=== PATIENT | male | born 1940 | race Caucasian/White ===

== ENCOUNTER → 2020-08-30 | Outpatient (CLI) | payer BC | LOC: SJCVCIMAG 10:29 | PROVIDERS: ATTEND Internal Medicine Cardiovascular Disease | DX: I47.1 Supraventricular tachycardia (principal); I49.1 Atrial premature depolarization ==

== ENCOUNTER → 2020-09-05 | Outpatient (CLI) | payer BC ==
[~2020-09-05] VITALS: Ht 182.9 cm; Wt 65.8 kg
[~2020-09-05] MED LIST: ASA81BEC PO; FLOMAX0.4 MG PO; LIPITOR40 MG PO
[2020-09-05 07:16] VITALS: BP 156/82
[2020-09-05 07:33] LABS: HEMATOCRIT 44.6 % (42.0-52.0); HEMOGLOBIN 14.8 gm/dL (14.0-18.0); MCH 31.9 pg (26.0-34.0); MCHC 33.2 g/dL (28.0-37.0); RBC 4.65 mil/uL (4.50-6.00); RDW 12.6 % (10.5-14.5); WBC 6.5 thou/uL (4.0-11.0)
[2020-09-05 07:40] LABS: POTASSIUM 3.9 mmol/L (3.5-5.1)
[2020-09-05 07:47] LABS: CALCIUM 9.4 mg/dL (8.5-10.1)
--- NOTE | 2020-09-06 17:25 | CATHLAB ---
[facility] [place] [address] INVASIVE PROCEDURE REPORT Name: VANESSA ESPARZA Room #: REG ELIZA Ruiz#: [id number] Admission: 09/05/20 Attend Phys: Matteo Corrales MD, Discharge: Date of : 44 Report #: [id number] THIS REPORT FOR: cc: Nathaniel Mejia MD, Bryan W. MD Mancuso, Gerald M. MD [facility] ~ APPROVED REPORT Study performed: 09/05/2020 07:45:32 Patient Details The patient is a 79 year-old male Event Personnel Matteo Corrales Event Lighting Specialist, Hernan Fontana RN RN, Seven Lanier RTR Monitor, Geraldine Parker RTR, MAGAZINE FILLER Scrub Procedures Performed Art Access - R femoral artery* 26999 Initial Mod Sed Same Phys/QHP Gr5y [id number] 24617 Mod Sed Same Phys/QHP Ea [id number] Left Heart Cath w/or w/o Coronaries [id number] [facility] Hemostasis w/ Mynx Abdominal Aortography 480356 Indication Abnormal ECG Procedure Narrative The Right Groin^ was infiltrated with 1% Lidocaine subcutaneous anesthesia. A PINNACLE 6FR Sheath #[id number] sheath was inserted into the RFA^. Coronary angiography was performed using coronary diagnostic catheters. The right coronary system was accessed and visualized with a JR4 catheter. The left coronary system was accessed and visualized with a JL4 catheter. The left ventricle was accessed and visualized with a PIGTAIL catheter. Left ventriculogram was performed in 30 degree projection. An aortogram of the abdominal aorta was performed. Pre-demployment femoral angiogram was performed . Closure device was deployed with a 6 Fr MYNXGRIP. Hemostasis was obtained with manual pressure following sheath removal without any complications. The patient tolerated the procedure well and there were no complications associated with the procedure. There was no hematoma. Intraoperative Conscious Sedation [facility] [address] [place] [address] INVASIVE PROCEDURE REPORT Name: VANESSA ESPARZA [id number] Admission: 09/05/20 Attend Phys: Matteo KwongPam HoskinsSavanna, Discharge: Date of : 44 Report #: [id number] Sedation start time: 0850 Case end Time: 0920 Fentanyl 50 mcg Versed 1 mg Fluoro Time: 1.50 minutes Dose: DAP 1819.20 cGycm2 208 mGy Contrast Type and Amount: Omnipaque 115 ml Hemodynamics The aortic pressure is 140/64 mmHg with a mean of 88 mmHg. The left ventricular pressure is 148/2 mmHg with a mean of mmHg. The left ventricular end diastolic pressure is 21 mmHg. Conclusion #1. Normal left jugular size and systolic function EF 60% #2 tortuous abdominal aorta without evidence of aneurysm. Brisk flow single bilateral renal arteries mildly diseased. #3 left main is short free of disease giving rise to LAD and circumflex. #4 LAD proximal calcification eccentric 30% lesion with mild diffuse disease distally some very small caliber near the apex. 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 <ELECTRONICALLY SIGNED> By: Matteo Corrales MD, FACC 09/06/201723 23 23 Matteo Corrales MD, FACC /INF
== END | disposition home or self-care (01) ==
LOC: CATH 06:24
PROVIDERS: ATTEND Internal Medicine Cardiovascular Disease
DX: R94.31 Abnormal electrocardiogram [ECG] [EKG] (principal); I25.10 Atherosclerotic heart disease of native coronary artery without angina pectoris; I70.0 Atherosclerosis of aorta; I70.1 Atherosclerosis of renal artery; Z98.890 Other specified postprocedural states; Z79.899 Other long term (current) drug therapy; Z79.82 Long term (current) use of aspirin